=== PATIENT | female | born 1995 | race Caucasian/White ===

== ENCOUNTER 2020-09-29 20:38 | Emergency (ER) | payer MEDICAID ==
[~2020-09-29] VITALS: Ht 160 cm; Wt 52.2 kg
[2020-09-29 20:44] VITALS: BP 141/69
[2020-09-29 21:16] LABS: BILIRUBIN,URINE Negative (NEGATIVE); COLOR,URINE YELLOW (YELLOW); LEUKOCYTE ESTERASE ,URINE Negative (NEGATIVE); NITRITE, URINE Negative (NEGATIVE); PH,URINE 7.5 (5.0-8.0); PROTEIN,URINE Negative (NEGATIVE); UGLUCOSE Negative (NEGATIVE); UROBILINOGEN,URINE 0.2 EU/dL (0.2)
[2020-09-29 21:34] LABS: BACTERIA,URINE Few /HPF (None Seen); WBC,URINE 0-2 /HPF (0-3)
[2020-09-29 21:35] LABS: URINE AMORPHOUS PHOSPHATES Few /HPF (None Seen)
[2020-09-29] MEDS ORDERED: NITR100C6 PO (21:40)
[2020-09-29] MEDS ORDERED: PHEN-705 PO (21:40)
[2020-09-29] MEDS ORDERED: PHENAZOPYRIDINE HCL 200 MG TABLET ONE (21:44)
[2020-09-29] MEDS ORDERED: NITROFURANTOIN/NITROFURAN MONOHYDRATE 100 MG CAPSULE ONE (21:44)
[2020-09-29] MEDS ORDERED: NITROFURANTOIN/NITROFURAN MONOHYDRATE 100 MG CAPSULE PO ONE (22:00)
[2020-09-29] MEDS ORDERED: PHENAZOPYRIDINE HCL 200 MG TABLET PO ONE (22:00)
== END 2020-09-29 21:52 | disposition home or self-care (01) ==
LOC: ER 20:45
DX: N39.0 Urinary tract infection, site not specified (principal)
CPT/HCPCS: 81001; 84703-TC